=== PATIENT | male | born 1975 | race African-American/Black ===

== ENCOUNTER 2016-06-26 20:24 | Emergency (ER) | payer SELFPAY ==
[~2016-06-26] VITALS: Ht 185.4 cm; Wt 93.0 kg
[2016-06-26 20:54] VITALS: BP 130/91
== END 2016-06-27 00:15 | disposition left against medical advice (07) ==
LOC: ER 20:28 → EDBD 20:28 → ER 06-27 00:15
DX: I10 Essential (primary) hypertension (principal); Z76.0 Encounter for issue of repeat prescription; Z53.21 Procedure and treatment not carried out due to patient leaving prior to being seen by health care provider

== ENCOUNTER 2016-06-27 07:57 | Emergency (ER) | payer BC, OTHER ==
[~2016-06-27] VITALS: Ht 185.4 cm; Wt 93.0 kg
[2016-06-27] MEDS ORDERED: LORazepam 0.5 MG TAB PO ONE (08:15)
[2016-06-27] MEDS ORDERED: ASPirin 81 mg TAB PO ONE (08:15)
[2016-06-27 08:28] VITALS: BP 135/91
[2016-06-27 08:39] LABS: Basophils # (auto) 0.1 uL; Basophils % (auto) 0.9 % (0.0-2.0); Eosinophils # (auto) 0.1 uL; Eosinophils % (auto) 0.8 % (0.0-7.0); Hematocrit 45.7 % (41.0-53.0); Lymphocytes # (auto) 1.7 uL; Lymphocytes % (auto) 22.4 % (10.0-50.0); Mean Corpuscular Hemoglobin 30.7 pg (28.0-32.0); Mean Corpuscular Hgb Conc. 32.9 g/dL (32.0-36.0); Mean Corpuscular Volume 93.1 fL (80.0-100.0); Mean Platelet Volume 7.8 fL (7.4-10.4); Monocytes # (auto) 0.7 uL; Monocytes % (auto) 9.5 % (0.0-12.0); Neutrophils # (auto) 5.1 uL; Neutrophils % (auto) 66.4 % (37.0-80.0); Platelet Count (auto) 265 10^3/uL (140-450); Red Cell Distribution Width 12.6 % (11.6-16.0); White Blood Cell 7.7 10^3/uL (4.4-10.8)
[2016-06-27 09:22] LABS: Albumin 3.1 g/dL (3.4-5.0); Anion Gap 8 (5-15); Aspartate Aminotransferase 10 U/L (15-37); BUN/Creatinine Ratio 8.3; Blood Urea Nitrogen 11 mg/dL (7-18); Calcium 7.9 mg/dL (8.5-10.1); Carbon Dioxide 27 mmol/L (21-32); Chloride 107 mmol/L (98-107); GFR African American 77 mL/min; GFR Non-African American 64 mL/min; Glucose 87 mg/dL (74-106); Potassium 3.9 mmol/L (3.5-5.1); Sodium 142 mmol/L (136-145)
[2016-06-27 10:07] LABS: Alkaline Phosphatase 62 U/L (45-117); Bilirubin, Total 0.4 mg/dL (0.2-1.0); Total Protein 6.3 g/dL (6.4-8.2)
== END 2016-06-27 10:18 | disposition home or self-care (01) ==
LOC: EDUNIT# 07:57 → ER 07:57
DX: F41.9 Anxiety disorder, unspecified (principal); R07.89 Other chest pain; Z76.0 Encounter for issue of repeat prescription; I10 Essential (primary) hypertension
CPT/HCPCS: 36415; 71010; 80053; 84484; 85025; 93005